=== PATIENT | female | born 1960 | race Caucasian/White ===

== ENCOUNTER 2024-05-25 12:50 | Inpatient (IN) ==
[2024-05-25 13:56] LABS: Hematocrit 38.4 % (35-45); Hemoglobin 12.9 g/dL (11.5-14.3); Mean Corpuscular Hemoglobin 33.8 pg (27-33); Mean Corpuscular Hgb Conc 33.7 g/dL (31-36); Mean Corpuscular Volume 100.4 fL (80-97); Red Blood Count 3.82 10^6/uL (3.63-4.92); Red Cell Distribution Width 12.9 % (12-17); White Blood Count 10.3 10^3/uL (3.8-11.8)
[2024-05-25 14:38] LABS: ABS Lymphocytes 0.8 10^3/uL (1.0-4.8); ABS Monocytes 0.6 10^3/uL (0.0-0.9); ABS Neutrophils 8.9 10^3/uL (1.5-7.6); ABS Nucleated RBC 0.01 10^3/ul; Eosinophil % 0.3 %; Lymphocyte % 8.2 %; Mean Platelet Volume 9.5 fL (7.5-11.2); Nucleated Red Blood Cells % 0.1 %/100WBC (0.0-0.8); Platelet Count 231 10^3/uL (150-450)
[2024-05-25 14:47] LABS: ALT 22 U/L (7-52); Albumin 3.9 g/dL (3.2-5.2); Albumin/Globulin Ratio 1.8 (1-3); Alkaline Phosphatase 60 U/L (35-149); Anion Gap 10 mmol/L (2-16); Blood Urea Nitrogen 18 mg/dL (6-24); CO2 Carbon Dioxide 19 mmol/L (22-32); Calcium 8.8 mg/dL (8.6-10.3); Chloride 106 mmol/L (101-111); Creatinine, Serum 0.96 mg/dL (0.51-0.95); Globulin 2.2 g/dL (2-4); Glucose 99 mg/dL (70-100); Sodium 135 mmol/L (135-145); Total Bilirubin 0.5 mg/dL (0.2-1.0); Total Protein 6.1 g/dL (6.4-8.9); eGFR CKD-EPI 66.5 (>60)
[2024-05-25] MEDS ORDERED: Senna TAB 8.6 mg TAB PO PRN (16:37)
[2024-05-25 16:46] LABS: Potassium Redraw 3.8 mmol/L (3.5-5.0)
[2024-05-25 17:41] LABS: TSH Ultra Thyroid Stim Horm 0.92 mcIU/mL (0.34-5.60)
[2024-05-25 17:52] LABS: Folate > 20.00 ng/mL (5.90-24.80)
[2024-05-25 17:53] LABS: Vitamin B12 379 pg/mL (180-914)
[2024-05-25] MEDS: Enoxaparin 40 MG/0.4 ML SYR SUBCUT ONE (23:04)
[2024-05-26 06:07] LABS: ABS Eosinophils 0.1 10^3/uL (0.0-0.5); ABS Lymphocytes 1.6 10^3/uL (1.0-4.8); ABS Monocytes 0.8 10^3/uL (0.0-0.9); ABS Neutrophils 3.9 10^3/uL (1.5-7.6); Eosinophil % 0.9 %; Hematocrit 29.4 % (35-45); Hemoglobin 10.4 g/dL (11.5-14.3); Lymphocyte % 24.6 %; Mean Corpuscular Hemoglobin 34.7 pg (27-33); Mean Corpuscular Hgb Conc 35.5 g/dL (31-36); Mean Corpuscular Volume 97.9 fL (80-97); Mean Platelet Volume 8.8 fL (7.5-11.2); Platelet Count 192 10^3/uL (150-450); Red Blood Count 3.01 10^6/uL (3.63-4.92); Red Cell Distribution Width 12.5 % (12-17); White Blood Count 6.3 10^3/uL (3.8-11.8)
[2024-05-26 06:43] LABS: Calcium 8.3 mg/dL (8.6-10.3); Creatinine, Serum 0.86 mg/dL (0.51-0.95); Potassium 4.2 mmol/L (3.5-5.0); eGFR CKD-EPI 75.9 (>60)
[2024-05-26] MEDS: Polyethylene Glycol 3350 17 GM PACKET PO SCH (08:28)
[2024-05-26 08:54] LABS: Vitamin D Total 25(OH) 23.8 ng/mL (20-50)
[2024-05-26 09:37] LABS: Activated Partial Thrombo Time 27.9 seconds (26.0-38.0); INR 1.24 (0.85-1.14)
[2024-05-26] MEDS ORDERED: Midazolam 5 mg/5 ml VIAL 1 mg/ml 5 ml VIAL (5 mg) ONE (09:56)
[2024-05-26] MEDS ORDERED: Lidocaine 2% PF 5 ML VIAL ONE (09:56)
[2024-05-26] MEDS ORDERED: Rocuronium 50 mg VIAL 10 mg/ml 5 ml VIAL (50 mg) ONE ×2 (09:56→13:06)
[2024-05-26] MEDS ORDERED: Propofol 10 MG/ML 20 ML BTL ONE (09:56)
[2024-05-26] MEDS ORDERED: fentaNYL 250 mcg/5 ml 50 MCG/ML 5 ml VIAL (250 MCG) ONE (09:56)
[2024-05-26] MEDS ORDERED: Lidocaine 1% w EPI 1:100,000 MDV 20 ML VIAL ONE (10:55)
[2024-05-26] MEDS ORDERED: Ondansetron 4 mg VIAL 2 MG/ML 2 ml VIAL ONE (14:04)
[2024-05-26] MEDS ORDERED: Dexamethasone IV 4 MG/ML VIAL 1 ml VIAL ONE (14:04)
[2024-05-26] MEDS ORDERED: ceFAZolin VIAL VIAL ONE (14:04)
[2024-05-26] MEDS ORDERED: Morphine 2 MG/ML SYRINGE IV PRN (16:40)
[2024-05-26] MEDS: Lactated Ringers 1000 ml BAG 1,000 ML IV ONE (17:52)
[2024-05-27] MEDS: ceFAZolin 1 GM in Dextrose 1 GM/50 ML BAG IVPB SCH (00:50)
[2024-05-27 06:21] LABS: ABS Lymphocytes 0.8 10^3/uL (1.0-4.8); ABS Monocytes 0.7 10^3/uL (0.0-0.9); ABS Neutrophils 5.9 10^3/uL (1.5-7.6); Hematocrit 23.2 % (35-45); Hemoglobin 7.9 g/dL (11.5-14.3); Lymphocyte % 11.1 %; Mean Corpuscular Hemoglobin 33.7 pg (27-33); Mean Corpuscular Hgb Conc 34.1 g/dL (31-36); Mean Corpuscular Volume 98.8 fL (80-97); Mean Platelet Volume 8.7 fL (7.5-11.2); Platelet Count 155 10^3/uL (150-450); Red Blood Count 2.35 10^6/uL (3.63-4.92); Red Cell Distribution Width 12.5 % (12-17); White Blood Count 7.5 10^3/uL (3.8-11.8)
[2024-05-27 06:38] LABS: Creatinine, Serum 0.82 mg/dL (0.51-0.95); Potassium 4.6 mmol/L (3.5-5.0); eGFR CKD-EPI 80.3 (>60)
[2024-05-27] MEDS: Enoxaparin 40 MG/0.4 ML SYR SUBCUT SCH (08:33)
[2024-05-27] MEDS: Lactated Ringers 1000 ml BAG 1,000 ML IV SCH (12:47)
[2024-05-27] MEDS: Lactated Ringers 1000 ml BAG 1,000 ML IV ONE (14:54)
[2024-05-28 08:30] LABS: ABS Eosinophils 0.1 10^3/uL (0.0-0.5); ABS Lymphocytes 1.2 10^3/uL (1.0-4.8); ABS Monocytes 0.5 10^3/uL (0.0-0.9); ABS Neutrophils 3.4 10^3/uL (1.5-7.6); Eosinophil % 1.5 %; Hematocrit 19.7 % (35-45); Hemoglobin 6.8 g/dL (11.5-14.3); Lymphocyte % 22.8 %; Mean Corpuscular Hemoglobin 34.4 pg (27-33); Mean Corpuscular Hgb Conc 34.5 g/dL (31-36); Mean Corpuscular Volume 99.7 fL (80-97); Mean Platelet Volume 8.9 fL (7.5-11.2); Platelet Count 119 10^3/uL (150-450); Red Blood Count 1.98 10^6/uL (3.63-4.92); White Blood Count 5.1 10^3/uL (3.8-11.8)
[2024-05-28 09:05] LABS: Calcium 7.7 mg/dL (8.6-10.3); Creatinine, Serum 0.84 mg/dL (0.51-0.95); Potassium 4.3 mmol/L (3.5-5.0)
[2024-05-28 12:03] LABS: Magnesium 1.7 mg/dL (1.9-2.7)
[2024-05-28 17:07] LABS: Hematocrit 26.3 % (35-45); Hemoglobin 9.3 g/dL (11.5-14.3)
[2024-05-29 09:08] LABS: ABS Eosinophils 0.1 10^3/uL (0.0-0.5); ABS Lymphocytes 1.1 10^3/uL (1.0-4.8); ABS Monocytes 0.4 10^3/uL (0.0-0.9); ABS Neutrophils 3.5 10^3/uL (1.5-7.6); Eosinophil % 2.9 %; Hematocrit 24.2 % (35-45); Hemoglobin 8.2 g/dL (11.5-14.3); Lymphocyte % 20.8 %; Mean Corpuscular Hemoglobin 33.2 pg (27-33); Mean Corpuscular Hgb Conc 33.8 g/dL (31-36); Mean Corpuscular Volume 98.2 fL (80-97); Mean Platelet Volume 8.8 fL (7.5-11.2); Nucleated Red Blood Cells % 0.1 %/100WBC (0.0-0.8); Platelet Count 136 10^3/uL (150-450); Red Blood Count 2.47 10^6/uL (3.63-4.92); Red Cell Distribution Width 14.1 % (12-17); White Blood Count 5.2 10^3/uL (3.8-11.8)
[2024-05-29 09:24] VITALS: BP 99/65
[2024-05-29 09:24] LABS: Creatinine, Serum 0.71 mg/dL (0.51-0.95); Potassium 4.1 mmol/L (3.5-5.0); eGFR CKD-EPI 95.5 (>60)
== END 2024-05-29 09:45 | DRG 308 ==
LOC: ED 12:50 → EDHOLD 12:50 → SUATTDRO 15:22 → OBSVTOIN 15:22 → SSU 18:23
PROVIDERS: ADMIT Internal Medicine; ATTEND Hospitalist

== ENCOUNTER 2024-05-29 08:52 | Inpatient (IN) ==
[2024-05-29] MEDS ORDERED: Senna TAB 8.6 mg TAB PO PRN (10:48)
[2024-05-30 07:05] LABS: ABS Eosinophils 0.2 10^3/uL (0.0-0.5); ABS Lymphocytes 1.2 10^3/uL (1.0-4.8); ABS Monocytes 0.5 10^3/uL (0.0-0.9); ABS Neutrophils 2.8 10^3/uL (1.5-7.6); ABS Nucleated RBC 0.01 10^3/ul; Eosinophil % 4.6 %; Hematocrit 24.9 % (35-45); Hemoglobin 8.7 g/dL (11.5-14.3); Lymphocyte % 25.3 %; Mean Corpuscular Hemoglobin 34.1 pg (27-33); Mean Corpuscular Hgb Conc 34.8 g/dL (31-36); Mean Corpuscular Volume 97.9 fL (80-97); Mean Platelet Volume 8.5 fL (7.5-11.2); Nucleated Red Blood Cells % 0.1 %/100WBC (0.0-0.8); Platelet Count 145 10^3/uL (150-450); Red Blood Count 2.54 10^6/uL (3.63-4.92); Red Cell Distribution Width 13.9 % (12-17); White Blood Count 4.7 10^3/uL (3.8-11.8)
[2024-05-30 07:23] LABS: Albumin/Globulin Ratio 1.6 (1-3); Calcium 8.3 mg/dL (8.6-10.3); Creatinine, Serum 0.76 mg/dL (0.51-0.95); Globulin 1.9 g/dL (2-4); Potassium 4.3 mmol/L (3.5-5.0); Total Bilirubin 0.9 mg/dL (0.2-1.0); Total Protein 4.9 g/dL (6.4-8.9)
[2024-05-30] MEDS: Enoxaparin 40 MG/0.4 ML SYR SUBCUT SCH (08:44)
[2024-06-03 06:43] LABS: ABS Eosinophils 0.2 10^3/uL (0.0-0.5); ABS Lymphocytes 1.1 10^3/uL (1.0-4.8); ABS Monocytes 0.4 10^3/uL (0.0-0.9); ABS Neutrophils 1.9 10^3/uL (1.5-7.6); Eosinophil % 4.9 %; Hematocrit 23.1 % (35-45); Hemoglobin 7.9 g/dL (11.5-14.3); Lymphocyte % 29.7 %; Mean Corpuscular Hemoglobin 33.5 pg (27-33); Mean Corpuscular Hgb Conc 34.1 g/dL (31-36); Mean Corpuscular Volume 98.3 fL (80-97); Mean Platelet Volume 8.1 fL (7.5-11.2); Nucleated Red Blood Cells % 0.1 %/100WBC (0.0-0.8); Platelet Count 201 10^3/uL (150-450); Red Blood Count 2.35 10^6/uL (3.63-4.92); Red Cell Distribution Width 13.8 % (12-17); White Blood Count 3.6 10^3/uL (3.8-11.8)
[2024-06-03 18:28] LABS: Urine Appearance Clear; Urine Bilirubin Negative (Negative); Urine Blood Negative (Negative); Urine Color Yellow; Urine Glucose Negative (Negative); Urine Ketones Negative (Negative); Urine Nitrite Negative (Negative); Urine Protein Negative (Negative); Urine Specific Gravity 1.022 (1.002-1.030); Urine Urobilinogen Negative (Negative); Urine pH 5.5 (5.0-8.0)
[2024-06-04 07:04] LABS: ABS Eosinophils 0.2 10^3/uL (0.0-0.5); ABS Monocytes 0.5 10^3/uL (0.0-0.9); ABS Neutrophils 2.2 10^3/uL (1.5-7.6); Eosinophil % 4.7 %; Hematocrit 23.7 % (35-45); Hemoglobin 8.2 g/dL (11.5-14.3); Lymphocyte % 25.1 %; Mean Corpuscular Hemoglobin 34.4 pg (27-33); Mean Corpuscular Hgb Conc 34.6 g/dL (31-36); Mean Corpuscular Volume 99.4 fL (80-97); Mean Platelet Volume 8.2 fL (7.5-11.2); Platelet Count 211 10^3/uL (150-450); Red Blood Count 2.39 10^6/uL (3.63-4.92); Red Cell Distribution Width 14.6 % (12-17)
[2024-06-05] MEDS: [UNRECOGNIZED DRUG - OTHER] PO SCH (08:46)
[2024-06-06 07:05] LABS: ABS Eosinophils 0.2 10^3/uL (0.0-0.5); ABS Lymphocytes 1.1 10^3/uL (1.0-4.8); ABS Monocytes 0.4 10^3/uL (0.0-0.9); ABS Neutrophils 1.8 10^3/uL (1.5-7.6); Eosinophil % 4.5 %; Hematocrit 26.4 % (35-45); Hemoglobin 9.2 g/dL (11.5-14.3); Lymphocyte % 31.5 %; Mean Corpuscular Hemoglobin 34.7 pg (27-33); Mean Corpuscular Volume 99.3 fL (80-97); Mean Platelet Volume 8.1 fL (7.5-11.2); Platelet Count 283 10^3/uL (150-450); Red Blood Count 2.65 10^6/uL (3.63-4.92); White Blood Count 3.5 10^3/uL (3.8-11.8)
[2024-06-06 07:44] LABS: Albumin 3.5 g/dL (3.2-5.2); Albumin/Globulin Ratio 1.7 (1-3); Calcium 8.9 mg/dL (8.6-10.3); Creatinine, Serum 0.8 mg/dL (0.51-0.95); Globulin 2.1 g/dL (2-4); Potassium 4.5 mmol/L (3.5-5.0); Total Protein 5.6 g/dL (6.4-8.9); eGFR CKD-EPI 82.7 (>60)
[2024-06-06] MEDS: Magnesium Hydroxide LIQ 30 ML UDC PO PRN (11:06)
[2024-06-06] MEDS: Psyllium PAK PO SCH (14:49)
[2024-06-07] MEDS: Sodium Phosphate ADULT ENEMA 133 ML BTL PR PRN (16:29)
[2024-06-09] MEDS: Polyethylene Glycol 3350 17 GM PACKET PO PRN (17:08)
[2024-06-10 06:02] LABS: ABS Eosinophils 0.2 10^3/uL (0.0-0.5); ABS Lymphocytes 1.1 10^3/uL (1.0-4.8); ABS Monocytes 0.4 10^3/uL (0.0-0.9); ABS Neutrophils 3.2 10^3/uL (1.5-7.6); Eosinophil % 3.7 %; Hematocrit 26.8 % (35-45); Hemoglobin 9.1 g/dL (11.5-14.3); Lymphocyte % 21.8 %; Mean Corpuscular Hemoglobin 33.5 pg (27-33); Mean Corpuscular Hgb Conc 33.8 g/dL (31-36); Mean Corpuscular Volume 99.1 fL (80-97); Mean Platelet Volume 7.8 fL (7.5-11.2); Platelet Count 394 10^3/uL (150-450); Red Cell Distribution Width 15.1 % (12-17)
[2024-06-11 05:39] VITALS: BP 107/59
[2024-06-11] MEDS: Polyethylene Glycol 3350 17 GM PACKET PO SCH (09:31)
== END 2024-06-11 16:50 | disposition home or self-care (01) | DRG 860 ==
LOC: PMRU 10:31
PROVIDERS: ADMIT Physical Medicine & Rehabilitation; ATTEND Physical Medicine & Rehabilitation